=== PATIENT | female | born 1995 ===

== ENCOUNTER 2016-09-04 15:03 | Emergency (ER) | payer OTHER ==
[2016-09-04 15:17] VITALS: TEMP 98.4; O2SAT 99
--- NOTE | 2016-09-04 15:41 | ED PDOC ---
Arrival/HPI - General Chief Complaint: Chest Pain Time Seen by Provider: 09/04/16 15:20 Historian: Patient - History of Present Illness Narrative History of Present Illness (Text): 09/04/16 15:35 20 year old female who denies any past medical history presents to the emergency department with intermittent chest pain since fall/fainting episode last July. Patient states she was evaluated in an ER after the episode and told it was attributed to "stress and panic." Denies trauma or injury. No relieving or exacerbating factors. She states she feels it in the shoulder and upper R back as well. Denies fever or other complaints. No PE risk factors. no recent travel, history of clotting problems, long periods of immobility. pt denies leg pain. currently states pain comes and goes and worse with movement. 09/04/16 20:13 Time/Duration: Other (> 1 year (July 2015)) Symptom Onset: Gradual Symptom Course: Intermittent Associated Symptoms (Text): None Past Medical History - Provider Review Nursing Documentation Reviewed: Yes - Infectious Disease Hx of Infectious Diseases: None - Cardiac Hx Cardiac Disorders: No - Pulmonary Hx Respiratory Disorders: No - Neurological Hx Neurological Disorder: Yes Hx Syncope: Yes (last year) - HEENT Hx HEENT Disorder: No - Psychiatric Hx Substance Use: No - Anesthesia Hx Anesthesia: No Family/Social History - Physician Review Nursing Documentation Reviewed: Yes Family/Social History: Unknown Family HX Smoking Status: Never Smoked Hx Alcohol Use: No Hx Substance Use: No Allergies/Home Meds Allergies/Adverse Reactions: Allergies No Known Allergies Allergy (Verified 09/04/16 15:13) Home Medications: Home Meds Medication Instructions Recorded Confirmed No Known Home Med 09/04/16 09/04/16 Review of Systems - Physician Review All systems were reviewed & negative as marked: Yes - Review of Systems Constitutional: absent: Fevers Respiratory: absent: SOB Cardiovascular: Chest Pain Neurological: absent: Dizziness Physical Exam Vital Signs Reviewed: Yes Vital Signs Temp Pulse Resp BP Pulse Ox 09/04/16 18:08 81 18 114/75 99 09/04/16 17:17 89 16 112/80 99 09/04/16 15:16 98.4 F 95 H 17 111/76 99 Temperature: Afebrile Blood Pressure: Normal Pulse: Regular Respiratory Rate: Normal Appearance: Positive for: Well-Appearing, Non-Toxic, Comfortable Pain Distress: None Mental Status: Positive for: Alert and Oriented X 3 - Systems Exam Head: Present: Atraumatic, Normocephalic Pupils: Present: PERRL Extroacular Muscles: Present: EOMI Conjunctiva: Present: Normal Mouth: Present: Moist Mucous Membranes Neck: Present: Normal Range of Motion Respiratory/Chest: Present: Clear to Auscultation, Good Air Exchange. No: Respiratory Distress, Accessory Muscle Use Cardiovascular: Present: Regular Rate and Rhythm, Normal S1, S2. No: Murmurs Abdomen: Present: Normal Bowel Sounds. No: Tenderness, Distention, Peritoneal Signs Back: Present: Normal Inspection Upper Extremity: Present: Normal Inspection. No: Cyanosis, Edema Lower Extremity: Present: Normal Inspection. No: Edema Neurological: Present: GCS=15, CN II-XII Intact, Speech Normal Skin: Present: Warm, Dry, Normal Color. No: Rashes Psychiatric: Present: Alert, Oriented x 3, Normal Insight, Normal Concentration Medical Decision Making ED Course and Treatment: Impression: 20 year old female who denies any past medical history presents to the emergency department with intermittent chest pain since syncopal episode last July. Differential Diagnosis include but are not limited to: chest pain likely Musculoskeletal pain Plan: -- Motrin -- EKG -- Reassess and disposition Progress Notes: 09/04/16 17:58 On reevaluation, patient states she feels better. Vitals stable. Patient in no acute distress. Chest x-ray read by me shows no acute findings. Shoulder x-ray read by me shows no acute findings. Instructed patient to follow up outpatient for chronic symptoms. Patient agrees with plan. 09/04/16 20:16 - RAD Interpretation Radiology Orders: 09/04/16 16:31 CHEST TWO VIEWS (PA/LAT) [RAD] Stat SHOULDER RIGHT [RAD] Stat - EKG Interpretation EKG Interpretation (Text): EKG shows NSR at 68 BPM, otherwise normal, with no prior for comparison. Interpreted by me. Interpreted by ED Physician: Yes Type: 12 lead EKG - Medication Orders Current Medication Orders: Discontinued Medications Ibuprofen (Motrin Tab) 600 mg PO STAT STA Stop: 09/04/16 15:38 Last Admin: 09/04/16 15:55 Dose: 600 mg - Scribe Statement The provider has reviewed the documentation as recorded by the Scribe Moose Ly Provider Scribe Attestation: All medical record entries made by the Scribe were at my direction and personally dictated by me. I have reviewed the chart and agree that the record accurately reflects my personal performance of the history, physical exam, medical decision making, and the department course for this patient. I have also personally directed, reviewed, and agree with the discharge instructions and disposition. Disposition/Present on Arrival - Present on Arrival Any Indicators Present on Arrival: No History of DVT/PE: No History of Uncontrolled Diabetes: No Urinary Catheter: No History of Decub. Ulcer: No History Surgical Site Infection Following: None - Disposition Have Diagnosis and Disposition been Completed?: Yes Diagnosis: Chest wall pain, Chest wall pain, chronic Disposition: HOME/ ROUTINE Disposition Time: 17:00 Patient Plan: Discharge Condition: GOOD Discharge Instructions (ExitCare): Chest Wall Pain (ED) Additional Instructions: follow up with your primary doctor in 1-2 days take motrin for pain return to the emergency department with any worsening or concerning symptoms. Referrals: [facility] [Outside] - Follow up with primary [facility] [Outside] - Follow up with primary PCP,NO [Primary Care Provider] - Follow up with primary
[2016-09-04 18:09] VITALS: BP 114/75; PULSE 81; RESP 18
--- NOTE | 2016-09-04 22:12 | CARD ---
APPROVED REPORT EKG Measurement Heart [id number] <Conclusion> Sinus rhythm with marked sinus arrhythmia Otherwise normal ECG
--- NOTE | 2016-09-05 08:35 | RAD ---
HISTORY: r shoulder chest pain COMPARISON: No prior. TECHNIQUE: Chest PA and lateral FINDINGS: LUNGS: No active pulmonary disease. PLEURA: No significant pleural effusion identified. No pneumothorax apparent. CARDIOVASCULAR: Normal. OSSEOUS STRUCTURES: No significant abnormalities. VISUALIZED UPPER ABDOMEN: Normal. OTHER FINDINGS: None. IMPRESSION: No active disease.
--- NOTE | 2016-09-05 08:35 | RAD ---
PROCEDURE: Radiographs of the Right Shoulder HISTORY: shoudler pain COMPARISON: No prior. FINDINGS: BONES: Normal. No fracture. JOINTS: Normal. Glenohumeral and acromioclavicular joints preserved. No osteoarthritis. SOFT TISSUES: Normal. OTHER FINDINGS: None. IMPRESSION: Normal radiographs of the right shoulder.
== END 2016-09-04 18:36 | disposition home or self-care (01) ==
LOC: ED 15:03
DX: R07.89 Other chest pain (principal)